=== PATIENT | female | born 1955 | race Hispanic/Latino ===

== ENCOUNTER 2022-08-22 07:55 | Observation (INO) | payer OTHER ==
[2022-08-19 16:21] LABS: BASOPHILS % 0.4 % (0.0-1.0); EOSINOPHILS # (AUTO) 0.1 (0.0-0.4); EOSINOPHILS % 0.9 % (0.0-6.0); HEMATOCRIT 45.1 % (34.2-44.1); HEMOGLOBIN 14.6 g/dL (12.0-16.0); LYMPHOCYTES % 24.4 % (18.0-39.1); MEAN CORPUSCULAR HEMOGLOBIN 33.7 pg (28-32); MEAN CORPUSCULAR HGB CONC 32.4 g/dL (31-35); MEAN CORPUSCULAR VOLUME 104.2 fL (81-99); MONOCYTES # (AUTO) 0.6 (0.2-0.8); MONOCYTES % 7.7 % (4.4-11.3); NEUTROPHILS # (AUTO) 5.3 (2.1-6.9); NEUTROPHILS % 66.4 % (38.7-80.0); PLATELET COUNT 278 x10e3/uL (140-360); RED BLOOD COUNT 4.33 x10e6/uL (3.6-5.1); RED CELL DISTRIBUTION WIDTH 11.9 % (11.7-14.4)
[2022-08-19 16:31] LABS: INR 0.84; PARTIAL THROMBOPLASTIN TIME 29.8 seconds (23.8-35.5); PROTHROMBIN TIME 11.7 seconds (11.9-14.5)
[2022-08-19 16:39] LABS: ANION GAP 12.6 mmol/L (8-16); CALCIUM 9.5 mg/dL (8.4-10.2); CREATININE, SERUM 0.97 mg/dL (0.57-1.11); POTASSIUM 3.6 mmol/L (3.5-5.1)
[~2022-08-22] VITALS: Ht 160 cm; Wt 86.2 kg
[2022-08-22] VITALS (8 sets, daily range): BP systolic 132–154; BP diastolic 51–83
[~2022-08-22 07:55] MED LIST: BUSPIRONE HCL10 MG PO; HYDROCHLOROTH12.5 MG PO; LEXAPRO10 MG PO; LIDOCAINE 2%/ EPINEPHRINE 20ML MDV ONE; LOSARTAN POTAS100 MG PO; ONDANSETRON ODT4 MG PO; THROMBIN FOR SOLN 5,000 UNIT VIAL ONE; Vancomycin IV 1 GM VIAL ONE
[2022-08-22] MEDS ORDERED: CEFAZOLIN SODIUM 2 GM ONE (09:02)
[2022-08-22] MEDS ORDERED: EPINEPHRINE HCL SYRINGE ONE (11:54)
[2022-08-22] MEDS ORDERED: SUGAMMADEX SODIUM 200 MG/2 ML VIAL IV ONE ×2 (12:07→12:30)
[2022-08-22] MEDS ORDERED: HYDROCODON-ACE1 EA12 PO (12:09)
[2022-08-22] MEDS ORDERED: CARISOPRODOL 350 MG TAB PO PRN (12:15)
[2022-08-22] MEDS ORDERED: MORPHINE SULFATE 5 MG/ML VIAL IM PRN (12:15)
[2022-08-22] MEDS ORDERED: HYDROMORPHONE 2MG/ML 2 MG/ML ML IV PRN (12:15)
[2022-08-22] MEDS ORDERED: PROMETHAZINE HCL (IM) 25 MG/ML VIAL IM PRN (12:15)
[2022-08-22] MEDS ORDERED: ACETAMINOPHEN 325 MG TAB PO PRN (12:15)
[2022-08-22] MEDS ORDERED: ONDANSETRON HCL INJ 2MG/ML 2ML 2 MG/ML VIAL IV PRN (12:15)
[2022-08-22] MEDS ORDERED: CEPACOL SORE THROAT LOZENGES PO PRN (12:15)
[2022-08-22] MEDS ORDERED: ONDANSETRON HCL 4 MG ORAL DISINTEGRATING TAB PO PRN (12:15)
[2022-08-22] MEDS ORDERED: ZOLPIDEM TARTRATE 5 MG TAB PO PRN (12:15)
[2022-08-22] MEDS ORDERED: MAGNESIUM/ALUMINUM/SIMETHICONE 30 ML UDC PO PRN (12:15)
[2022-08-22] MEDS ORDERED: PROPOFOL IV EMULSION 10 MG/ML 20 ML VIAL ONE (12:46)
[2022-08-22] MEDS ORDERED: METOCLOPRAMIDE HCL 10 MG/2ML VIAL ONE (12:46)
[2022-08-22] MEDS ORDERED: DEXAMETHASONE SOD PHOS INJ 4 MG/ML SDV ONE (12:46)
[2022-08-22] MEDS ORDERED: PHENYLEPHRINE HCL 1% 10 MG/ML VIAL ONE (12:46)
[2022-08-22] MEDS ORDERED: ONDANSETRON HCL INJ 2MG/ML 2ML 2 MG/ML VIAL ONE (12:46)
[2022-08-22] MEDS ORDERED: LIDOCAINE HCL 2% LOCAL INJ 5 ML SDV VIAL INJ ONE (12:46)
[2022-08-22] MEDS ORDERED: POVIDONE IODINE 0.05% 0.05 % ML PO ONE (12:46)
[2022-08-22] MEDS ORDERED: ROCURONIUM BROMIDE 10 MG/ML 5ML VIAL IV ONE (12:46)
[2022-08-22] MEDS ORDERED: FENTANYL CITRATE/PF 100MCG/2 ML INJ ONE ×2 (13:10→13:36)
[2022-08-22] MEDS ORDERED: HYDRALAZINE HCL 20 MG/ML VIAL ONE (13:25)
[2022-08-22] MEDS ORDERED: KETAMINE HCL INJ 50 MG/ML 10 ML VIAL ONE (13:36)
[2022-08-22] MEDS: LACTATED RINGER'S 1,000 ML IV SCH (13:52)
[2022-08-22] MEDS ORDERED: LACTATED RINGER'S 1,000 ML ONE (13:58)
[2022-08-22] MEDS: BUSPIRONE HCL 10 MG TABLET PO SCH ×2 (15:00→20:53)
[2022-08-22] MEDS: OXYCODONE/ACETAMINOPHEN 5-325 1 EACH TABLET PO PRN ×2 (15:40→20:53)
[2022-08-22] MEDS: Vancomycin IV 1 GM in SODIUM CHLORIDE 0.9% 250ML 250 ML IV SCH (17:42)
[2022-08-23] VITALS: BP 140/70
[2022-08-23] MEDS: OXYCODONE/ACETAMINOPHEN 5-325 1 EACH TABLET PO PRN (03:24)
[2022-08-23] MEDS: LACTATED RINGER'S 1,000 ML IV SCH ×2 (03:24→05:31)
[2022-08-23 04:00] VITALS: BP 133/73
[2022-08-23] MEDS: Vancomycin IV 1 GM in SODIUM CHLORIDE 0.9% 250ML 250 ML IV SCH (05:29)
[2022-08-23 08:45] VITALS: BP 136/62
[2022-08-23 09:00] VITALS: BP 136/62
[2022-08-23] MEDS ORDERED: ESCITALOPRAM OXALATE 10 MG TAB PO SCH (09:00)
[2022-08-23] MEDS: BUSPIRONE HCL 10 MG TABLET PO SCH (09:00)
[2022-08-23] MEDS ORDERED: NON-FORMULARY MEDICATION (Hydrochlorothiazide 25 MG) PO SCH (09:00)
[2022-08-23] MEDS ORDERED: HYDROCHLOROTHIAZIDE 25 MG TAB PO SCH (09:00)
[2022-08-23] MEDS ORDERED: LOSARTAN POTASSIUM 100 MG TAB PO SCH (09:00)
[2022-08-23 09:35] VITALS: BP 136/62
== END 2022-08-23 09:40 | disposition home or self-care (01) ==
LOC: OR 07:55 → PACU V 12:04 → MED/SURG 13:35
PROVIDERS: ADMIT Neurological Surgery; ATTEND Neurological Surgery
DX: M47.22 Other spondylosis with radiculopathy, cervical region (principal); Z20.822 Contact with and (suspected) exposure to COVID-19; Z01.818 Encounter for other preprocedural examination; F41.9 Anxiety disorder, unspecified; I10 Essential (primary) hypertension; K21.9 Gastro-esophageal reflux disease without esophagitis
CPT/HCPCS: 0223U; 20931; 22551; 22552; 22845; 36415; 71046; 72040; 76000; 80048; 85025; 85610; 85730; 86850; 86900; 88304; 88311; 93005; C1713 ×4; C1763; G0378 ×2; J0171; J0360; J1100; J2001 ×2; J2370; J2405; J2704; J2765; J3010; J3370 ×2; J7050 ×2; J7121 ×2